=== PATIENT | male | born 1975 | race Caucasian/White ===

== ENCOUNTER 2016-08-28 16:25 | Emergency (ER) | payer BC, OTHER ==
[~2016-08-28] VITALS: Ht 182.9 cm; Wt 85.7 kg
[2016-08-28] MEDS ORDERED: HYDROMORPHONE PF 1 MG/ML DISP.SYRIN. IM ONE ×2 (17:00→18:00)
[2016-08-28 17:47] VITALS: BP 102/82
[2016-08-28] MEDS ORDERED: OXYC-250 PO (18:14)
[2016-08-28] MEDS ORDERED: CYCL10TA2 PO (18:14)
[2016-08-28] MEDS ORDERED: PRED20TA PO (18:14)
--- NOTE | 2016-08-28 18:17 | PHYS DOC ---
General Chief Complaint: BACK PAIN OR INJURY Stated Complaint: BACK PAIN Time Seen by MD: 16:30 Source: patient Exam Limitations: no limitations Problems: History of Present Illness Initial Comments Pt is 41/M to ED c/o back pain/injury. Pt states approx one hour prior to arrival he was competing in [employer] tournament. States that during the match he fell backwards landing on buttocks. He had severe left low back/SI pain but was able to stand and tried to continue the match. Pain was severe, pt sat down and surrendered the match, had to be carried to the car as his back pain too severe to walk. Pt denies midline pain, no leg symptoms, no bowel/bladder sx or saddle anesthesia. Denies head trauma/LOC/CHOWDHURY/neck pain, no other c/o. Pt normally very physically fit, currently running 180 miles/week in preparation for upcoming marathon in addition to competitive martial arts. Other than ice which hasn't helped, no other prearrival treatment. Occurred: this afternoon Severity: severe Injuries/Pain Location: back Context: other Loss of Consciousness: no loss of consciousness Modifying Factors: worse with jarring, worse with movement, improves with pain medication, improves with rest Associated Symptoms: muscle spasms, trouble walking, other Allergies: Coded Allergies: peanut (Verified Allergy, Severe, 06/25/15) Past Medical History Medical History: hypertension Surgical History: other (vasectomy, left pectoral tear) Social History Smoker: non-smoker Alcohol: rarely Drugs: none Review of Systems Constitutional: denies diaphoresis, denies fever, denies malaise Eyes: denies blindness, denies blurred vision Respiratory: denies cough, denies shortness of breath Cardiovascular: denies chest pain, denies syncope Gastrointestinal: denies nausea, denies vomiting Genitourinary: denies frequency, denies hematuria Musculoskeletal: see HPI Psychiatric/Neurological: see HPI Physical Exam General Appearance: moderate distress Head: no evidence of injury Eyes: bilateral eye EOMI, bilateral eye PERRL, bilateral eye normal inspection Ears, Nose, Mouth, Throat: hearing grossly normal, no evidence of ENT injury Neck: non-tender, full range of motion Cardiovascular/Respiratory: normal peripheral pulses, no respiratory distress Gastrointestinal: non tender, soft Back: no CVA tenderness, muscle spasm, other (generalized left SI and L-S pain not tender, no swell/ecchy) Extremities: non-tender, pelvis stable Neurologic/Psychiatric: compliance vice president II-XII nml as tested, no motor/sensory deficits, alert, oriented x 3, other (dtrs/strength/sensory equal/intact b/l LE, neg SLR b /l) Skin: normal color, warm/dry Jupiter Coma Score Best Eye Response: (4) open spontaneously Best Verbal Response: (5) oriented Best Motor Response: (6) obeys commands Jupiter Total: 15 Orders, Labs, Meds Hips/Pelvis, Lumbar Spine: no obvious displaced fracture Pt more comfortable with IM dilaudid, able to stand/transfer still with discomfort. He expressed agreement/understanding of treatment plan. Departure Time of Disposition: 18:15 Disposition: 01 HOME, SELF-CARE Diagnosis: Fall, Low back strain Condition: GOOD Patient Instructions: Low Back Strain with Rehab-SportsMed, RICE - Routine Care for Injuries, [id number] Additional Instructions: Keep activity to "pain-free." Work excuse thru 4/5. Ice 20 minutes 4-6 times daily. Rx: cyclobenzaprine, prednisone, percocet 10 #30. Take meds with food. Follow up with your doctor in 3 days for recheck. Return to ED with new or changing symptoms. NEHEMIAS DIEHL DO Aug 28, 2016 18:17
--- NOTE | 2016-08-29 08:04 | RAD ---
EXAM: Lumbar spine, 3 views. HISTORY: Fall. COMPARISON: None. FINDINGS: Frontal, lateral and coned sacral views of the lumbar spine are obtained. There is no listhesis. The vertebral bodies are normal in height. There is mild disc space narrowing at L3-L4 and L5-S1. IMPRESSION: No acute osseous finding.
== END 2016-08-28 18:40 | disposition home or self-care (01) ==
LOC: ER 16:25
DX: S39.012A Strain of muscle, fascia and tendon of lower back, initial encounter (principal); I10 Essential (primary) hypertension; Z91.010 Allergy to peanuts; W19.XXXA Unspecified fall, initial encounter; Y93.75 Activity, martial arts; Y99.8 Other external cause status; Y92.89 Other specified places as the place of occurrence of the external cause
CPT/HCPCS: 72100; 96372; 99284; J1170